=== PATIENT | female | born 1980 | race Caucasian/White ===

== ENCOUNTER 2018-10-11 11:09 | Emergency (ER) | payer OTHER ==
[~2018-10-11] VITALS: Ht 182.9 cm; Wt 145.0 kg
--- NOTE | 2018-10-11 11:31 | NUR ---
PT PRESENTING TO ER FOR INTERMITTENT HEART PALP CAUSING SOB AND DIZZINESS OVER LAST 3 WKS. CONNECTED TO MONITORING, VSS. FAMILY AT BEDSIDE. MD TO BEDSIDE FOR ASSESSMENT. CALL LIGHT WITHIN REACH. AWAITING ORDERS AT THIS TIME
--- NOTE | 2018-10-11 11:46 | NUR ---
PT OFFERED ATIVAN, DECLINING AT THIS TIME
[2018-10-11] MEDS ORDERED: LORazepam 1MG TABLET ONE (11:49)
--- NOTE | 2018-10-11 11:53 | NUR ---
PT MEDCIATED. LABS DRAWN AND XRAY COMPLETED.
[2018-10-11] MEDS ORDERED: LORazepam 1MG TABLET PO ONE (12:00)
[2018-10-11 12:01] LABS: BASOPHILS # (AUTO) 0.02 x10^3/uL (0-0.1); BASOPHILS % (AUTO) 0 % (0-1); EOSINOPHILS # (AUTO) 0.17 x10^3/uL (0-0.4); EOSINOPHILS % (AUTO) 2 % (1-7); LYMPHOCYTES # (AUTO) 1.21 x10^3/uL (1-3.4); LYMPHOCYTES % (AUTO) 16 % (22-44); MD NO; MEAN CORPUSCULAR HEMOGLOBIN 30.8 pg (27.0-34.8); MEAN CORPUSCULAR HGB CONC 33.1 g/dL (32.4-35.8); MEAN CORPUSCULAR VOLUME 93.1 fL (80-100); MEAN PLATELET VOLUME 9.9 fL (7.4-10.4); MONOCYTES # (AUTO) 0.28 x10^3/uL (0.2-0.8); MONOCYTES % (AUTO) 4 % (2-9); NEUTROPHILS # (AUTO) 5.82 x10^3/uL (1.8-6.8); NEUTROPHILS % (AUTO) 78 % (42-75); PLATELET COUNT 175 x10^3/uL (130-400); RED BLOOD COUNT 4.78 x10^6/uL (3.82-5.3); RED CELL DISTRIBUTION WIDTH 13.3 % (9.6-15.2)
[2018-10-11 12:12] LABS: ALANINE AMINOTRANSFERASE 41 U/L (12-78); ALBUMIN 3.5 g/dL (3.4-5.0); ANION GAP 3 mmol/L (5-15); CALCIUM 8.4 mg/dL (8.5-10.1); CHLORIDE 110 mmol/L (98-107)
[2018-10-11 12:16] LABS: ALKALINE PHOSPHATASE 76 U/L (45-117); BILIRUBIN,TOTAL 0.7 mg/dL (0.2-1.0); TOTAL PROTEIN 6.8 g/dL (6.4-8.2); TROPONIN I < 0.015 ng/mL (0.000-0.045)
--- NOTE | 2018-10-11 13:19 | NUR ---
IV PLACED, PT TAKEN TO CT
[2018-10-11] MEDS ORDERED: OMNIPAQUE 350 MG/ML, 150 ML BOTTLE ONE (13:39)
--- NOTE | 2018-10-11 13:50 | NUR ---
ALL RESULTS BACK AT THIS TIME, CHART UP FOR RECHECK
[2018-10-11 14:38] VITALS: BP 117/65
== END 2018-10-11 14:40 | disposition home or self-care (01) ==
LOC: ED 12:08
DX: R00.2 Palpitations (principal); F41.1 Generalized anxiety disorder
CPT/HCPCS: 36415; 71046; 71275; 80053; 84484; 85025; 85379; 93005; 99284; Q9967